=== PATIENT | female | born 1975 | race Caucasian/White ===

== ENCOUNTER 2018-11-30 12:33 | Emergency (ER) | payer OTHER ==
[2018-11-30 12:47] VITALS: BP 111/68; PULSE 110; TEMP 100.7; BMI 31.6
[2018-11-30] MEDS ORDERED: ACETAMINOPHEN 500 MG TABLET (FP) PO ONE (13:08)
--- NOTE | 2018-11-30 13:15 | PDOC ---
History of Present Illness - General Chief Complaint: Cold Symptoms Stated Complaint: cold like symtoms Time Seen by Provider: 11/30/18 13:04 - History of Present Illness Initial Comments: 11/30/18 13:09 43-year-old female without comorbidities presents for evaluation of flulike symptoms 2 days. She has a daughter who was diagnosed with flu and is being treated at this time as well. Past History - Past Medical History Allergies/Adverse Reactions: Allergies Allergy/AdvReac Type Severity Reaction Status Date / Time No Known Allergies Allergy Verified 11/30/18 12:44 Home Medications: Ambulatory Orders Oseltamivir Phosphate [Tamiflu] 75 mg PO BID #10 capsule 11/30/18 COPD: No - Suicide/Smoking/Psychosocial Hx Smoking History: Never smoked Have you smoked in the past 12 months: No Information on smoking cessation initiated: No Hx Alcohol Use: No Drug/Substance Use Hx: No Review of Systems - Review of Systems Constitutional: Yes: Chills, Fever, Malaise, Night Sweats Respiratory: Yes: Cough *Physical Exam - Vital Signs Last Vital Signs Temp Pulse Resp BP Pulse Ox 100.7 F H 110 H 18 111/68 100 11/30/18 12:44 11/30/18 12:44 11/30/18 12:44 11/30/18 12:44 11/30/18 12:44 - Physical Exam Comments: 11/30/18 13:10 HEAD: NC/AT EYES: Conjuntiva clear Ears: Canals and TM's normal NOSE: No d/c THROAT: Moist mucous membrances, oral pharanx clear, uvula midline NECK: Supple without adenopathy CARDIAC: S1 S2 LUNGS: CTA Full and Equal breath sounds ABDOMEN: Soft NT ND MS: Full ROM in all joints without edema NEUROLOGIC: No gross sensory or motor deficits, NVID SKIN: Normal color and temperature no lesions or rashes Moderate Sedation - Procedure Monitoring Vital Signs: Procedure Monitoring Vital Signs Temperature 100.7 F H 11/30/18 12:44 Pulse Rate 110 H 11/30/18 12:44 Respiratory Rate 18 11/30/18 12:44 Blood Pressure 111/68 11/30/18 12:44 O2 Sat by Pulse Oximetry (%) 100 11/30/18 12:44 Medical Decision Making - Medical Decision Making 11/30/18 13:11 We'll treat for influenza based on symptoms and sick contacts *DC/Admit/Observation/Transfer Diagnosis at time of Disposition: Influenza - Discharge Dispostion Disposition: HOME Condition at time of disposition: Stable Decision to Admit order: No - Prescriptions Prescriptions: Oseltamivir Phosphate [Tamiflu] 75 mg PO BID #10 capsule - Referrals Referrals: Giovanny Courtney [Primary Care Provider] - - Patient Instructions Printed Discharge Instructions: Influenza Additional Instructions: Please take the Tamiflu as directed. Tylenol and Motrin as directed for fever and body aches return to the emergency room should symptoms worsen or go unresolved and follow-up with your primary care physician in one to 2 days for further evaluation and treatment options. - Post Discharge Activity
[2018-11-30] MEDS ORDERED: ACETAMINOPHEN 500 MG TABLET (FP) ONE (13:19)
== END 2018-11-30 13:24 | disposition home or self-care (01) ==
LOC: JERFT 12:33
DX: J11.1 Influenza due to unidentified influenza virus with other respiratory manifestations (principal)
CPT/HCPCS: 99281-25